=== PATIENT | female | born 1945 ===

== ENCOUNTER 2025-06-26 02:22 | Observation (INO) | payer MEDICARE, OTHER, SELFPAY ==
[2025-06-26] VITALS (29 sets, daily range): BP systolic 93–153; BP diastolic 28–127; PULSE 63–81; RESP 16–22; TEMP 36.4–36.5; O2SAT 92–98
--- NOTE | 2025-06-26 | DI.NM_ITS ---
Exam(s) NM LUNG SCAN VENT PERF AEROS EXAM: NM LUNG SCAN VENT PERF AEROS CLINICAL HISTORY: possible PE vs DVT. TECHNIQUE: Injected Dose: Ventilation: 30 mCi Tc-99m DTPA via inhalation Perfusion: 3.5 mCi Tc-99m MAA via IV COMPARISON: CR,XR XR CHEST 2V PA LATERAL from 06/26/2025 FINDINGS: Chest X-Ray: Clear lungs. Perfusion: Normal. There are no perfusion defects visualized on the examination. Ventilation:Normal. IMPRESSION: 1. Low probability VQ examination. Modified PIOPED II criteria Probability Criteria High Two or more segments of V/Q mismatch Low Normal Perfusion, Non segmental perfusion abnormalities, pleural effusion in at least 1/3 of pleural cavity with no other defect Radiograph/perfusion matched defect in mid to upper lung confined to segment, one to three small segmental perfusion defects (<25% of segment) Perfusion defect smaller than corresponding radiographic lesion. Intermediate All other findings DATA REPOSITORY:
--- NOTE | 2025-06-26 | DI.US_ITS ---
Exam(s) US EXTREMITY VENOUS BI EXAM: US EXTREMITY VENOUS BI CLINICAL HISTORY: dvt. TECHNIQUE: Bilateral lower extremity venous ultrasound performed using grayscale, color-flow, and spectral Doppler analysis. COMPARISON: No exams were available for comparison FINDINGS: The right common femoral, femoral and popliteal veins demonstrate normal compressibility, augmentation, and color Doppler. The posterior tibial veins are patent. The saphenofemoral junction is unremarkable. There is no evidence of a Ko's cyst. The soft tissues are unremarkable. The left common femoral, femoral and popliteal veins demonstrate normal compressibility, augmentation, and color Doppler. The posterior tibial veins are patent. The saphenofemoral junction is unremarkable. There is no evidence of a Ko's cyst. The soft tissues are unremarkable. IMPRESSION: 1. No evidence of a right lower extremity DVT. 2. No evidence of a left lower extremity DVT. DATA REPOSITORY:
--- NOTE | 2025-06-26 02:15 | RT.EKG_ITS ---
APPROVED REPORT Exam: Resting ECG Reason for Exam: SOB Patient Location: E HR:64 bpm ECG Measurements Heart Rate 64 AXIS IN 305 P 79 QRSd 81 QRS -1 QT 415 T 68 QTc 427 Conclusion Sinus rhythm...normal P axis, V-rate 60- 99 Prolonged IN interval...IN >220, V-rate 50- 90 Low voltage, precordial leads...precordial leads <1.0mV Normal [place] No Acute ST changes
--- NOTE | 2025-06-26 02:24 | W.ED.GENAD ---
Discharge Plan Disposition Patient Disposition: Admit to [facility] Condition: Stable Discharge Details Clinical Impression: Pneumonia, Elevated d-dimer, CKD (chronic kidney disease) ED Provider: Jan Hurley and New Rx's Prescriptions: No Action insulin aspart U-100 [Novolog FlexPen U-100 Insulin] .ROUTE insulin degludec [Tresiba FlexTouch U-100] subcut ustekinumab [Stelara] subcut Rx Instructions: once every 3 months rosuvastatin [Crestor] 40 mg tablet 40 mg PO DAILY calcium carbonate-vitamin D3 [Vitamin D3 (with calcium carb)] .ROUTE gabapentin 400 mg capsule 400 mg PO BID esomeprazole magnesium [Nexium] 40 mg capsule,delayed release(DR/EC) 40 mg PO QAM esomeprazole magnesium [Nexium] 20 mg capsule,delayed release(DR/EC) 20 mg PO QPM oseltamivir [Tamiflu] .ROUTE bupropion HCl [Wellbutrin] PO acetaminophen 500 mg tablet 500 mg PO BID lamotrigine .ROUTE modafinil 200 mg tablet 200 mg PO QAM amlodipine 10 mg tablet 10 mg PO QPM HPI General Mode of arrival: EMS. Date/Time Provider Initiated Documentation: 06/26/25 02:24. Limitations to Documentation: no limitations. Information obtained by: patient and RN notes reviewed. HPI Narrative: Patient presents to ED with complaint of shortness of breath. Patient is visiting from out of town. She was on a cruise from [place] to [facility] and became ill with flu. She is now driving back to [place] from [facility]. This evening prior to going to bed had episode of shortness of breath. This resolved and she was able to sleep but woke again early this morning with recurrent shortness of breath. She feels like she is unable to take a deep breath. She denies any chest pain or pressure. Denies any leg pain or leg swelling. Still has a cough. Denies any abdominal pain or back pain. Normal saturations on room air. Related Data Home Medications ?Medication ?Instructions ?Recorded ?Confirmed acetaminophen 500 mg tablet 500 mg PO BID 06/26/25 06/26/25 amlodipine 10 mg tablet 10 mg PO QPM 06/26/25 06/26/25 bupropion HCl PO 06/26/25 calcium carbonate-vitamin D3 .ROUTE 06/26/25 esomeprazole magnesium 20 mg 20 mg PO QPM 06/26/25 06/26/25 capsule,delayed release (Nexium) esomeprazole magnesium 40 mg 40 mg PO QAM 06/26/25 06/26/25 capsule,delayed release (Nexium) gabapentin 400 mg capsule 400 mg PO BID 06/26/25 06/26/25 insulin aspart U-100 .ROUTE 06/26/25 insulin degludec subcut 06/26/25 lamotrigine .ROUTE 06/26/25 modafinil 200 mg tablet 200 mg PO QAM 06/26/25 06/26/25 oseltamivir .ROUTE 06/26/25 rosuvastatin 40 mg tablet (Crestor) 40 mg PO DAILY 06/26/25 06/26/25 ustekinumab subcut 06/26/25 Allergies Allergy/AdvReac Type Severity Reaction Status Date / Time Opioids - Morphine Analogues Allergy Unknown Unknown Verified 06/26/25 02:31 Penicillins Allergy Unknown Unknown Verified 06/26/25 02:31 Exam Narrative Exam Narrative: Const: WDWN elderly female in NAD. VS per triage. HEENT: NC/AT. Normal facial exam. Neck: Supple. Trachea midline. Lungs: Normal respiratory effort. Lungs are clear. Cor: RRR with murmur. Good radial pulses. GI: Soft/ND/NT. Neuro: A+O x 3. Normal speech, mentation, gait. Cranial nerves II - XII grossly intact. No gross motor or sensory deficit. Ext: No C/C/E. Medical Decision Making Medical Records Medical records narrative: Patient presenting to the ED by ambulance with shortness of breath. Reports having shortness of breath prior to going to bed which resolved. Recurrent episode after waking up this morning prompting visit to ED. She is visiting from the area and is from [place]. She reports getting over the flu with residual cough. She has no chest pain or pressure. She has no back pain or abdominal pain. Saturations are normal. Her lungs are clear. Does have a murmur on exam. Doubt ACS or PE normal vitals and saturations. Consider possibility of pneumonia though reports improvement of cough since getting ibuprofen. Possibly related to anxiety patient states earlier this evening felt like a panic attack. Her EKG is sinus rhythm first-degree heart block no acute ST changes. Plan laboratory studies including delta troponin and D-dimer. Imaging of the chest will be obtained based on D-dimer result. Patient has normal WBC. She is anemic with Hgb 10.4. Venous gas with normal pH and pCO2. Chemistries with normal electrolytes but creatinine of 2.4 with GFR of 20. LFTs are fine. Troponin normal. D-dimer is > 1000. Unable to scan due to CKD. CXR ordered. Per my read LLL opacity, radiology feels bilateral hazy opacities. While the d-dimer may be related to pneumonia, cannot completely exclude PE at this time. Her repeat troponin remains normal. Discussed with patient finding of pneumonia but inability to exclude PE. Recommend admission to treat the pneumonia and obtain BLE U/S and V/Q scan later today. Patient agreeable to plan. Patient discussed with hospitalist. Will treat for pneumonia and will anticoagulate pending PE workup. Imaging Data Radiologic Study: Attestation: I personally reviewed and interpreted this imaging study as follows: Imaging: X-Ray My impression: see [facility] Lab Data Lab results reviewed: Yes I reviewed the patient's lab results. Lab results narrative: see [facility] ECG Data Attestation: I personally reviewed and interpreted this ECG (s) as follows: Prior ECG tracings: not available for review Interpretation: see MDM/EKG PFSH All Active Problems (Updated 06/26/25 @ 04:54 by Jan Hurley MD) CKD (chronic kidney disease) (Chronic) Elevated d-dimer (Acute) Pneumonia (Acute) Medical History (Updated 06/26/25 @ 04:54 by Jan Hurley MD) Hypercholesterolemia GERD (gastroesophageal reflux disease) HTN (hypertension) CKD (chronic kidney disease) Diabetes mellitus Social History Smoking/Tobacco Use Status: Never Smoking risk assessment performed?: Yes Alcohol Intake: never Drug use: Never Substance use type: does not use Do you feel safe at home: Yes Do you feel safe in your relationship?: Yes
[2025-06-26 02:48] LABS: BE (Venous) -5 mmol/L (-2-3); HCO3 (Venous) 21 mmol/L (23-28); O2 Sat (Venous) 70 %; TCO2 (Venous) 20 mmol/L (24-29); pCO2 (Venous) 41 mmHg (41-51); pO2 (Venous) 37 mmHg
[2025-06-26 02:49] LABS: Abs Immature Grans 0.01 10^3/uL (0.0-0.06); HCT 31.2 % (36.0-46.0); HGB 10.4 g/dL (11.2-15.7); Immature Grans % 0.2 %; MCH 27.3 pg (27.0-33.0); MCHC 33.3 % (32.0-36.0); MCV 82 fL (80-95); MPV 8.6 fL (8.0-11.0); Platelet Count 179 10^3/uL (130-400); RBC 3.81 10^6/uL (3.93-5.22); RDW 14.1 % (11.7-14.6); RDW-SD 42.1 fL; WBC 5.64 10^3/uL (4.4-10.8)
[2025-06-26 03:08] LABS: ALT 29 U/L (14-59); AST 20 U/L (15-37); Albumin 3.3 g/dL (3.4-5.0); Alkaline Phosphatase 178 U/L (46-116); Anion Gap 9.1 mmol/L (3-11); BUN 37 mg/dL (7-18); Bilirubin, Total 0.3 mg/dL (0.2-1.0); CO2 22.9 mmol/L (21.0-32.0); Calcium 8.3 mg/dL (8.5-10.1); Chloride 105 mmol/L (98-107); Estimated GFR 20.17 (mL/min/1.73m2); Glucose 68 mg/dL (74-106); Magnesium 1.8 mg/dL (1.8-2.4); Potassium 3.9 mmol/L (3.5-5.1); Sodium 137 mmol/L (136-145); Total Protein 7.5 g/dL (6.4-8.2); Troponin I 24 ng/L (<or=51)
[2025-06-26 03:14] LABS: D-Dimer 1138 ng/mlFEU (<500)
--- NOTE | 2025-06-26 03:15 | DI.RAD_ITS ---
Exam(s) XR CHEST 2V PA LATERAL EXAM: XR CHEST 2V PA LATERAL CLINICAL HISTORY: SOB TECHNIQUE: 2D digital imaging was performed of the chest. Two images were obtained. PA and lateral views were obtained. COMPARISON: No exams were available for comparison FINDINGS: MEDIASTINUM: Normal. HEART: Normal. PULMONARY VASCULATURE: Normal. LUNGS: There are lung markings seen in the bases bilaterally, left greater than right. PLEURAL SPACE: No pleural effusion or pneumothorax. BONE:Within normal limits for the patient's age. There is a left shoulder prosthesis. OTHER FINDINGS:Normal. IMPRESSION: 1. Linear infiltrates in the lung bases. This may represent atelectasis. Pneumonia cannot be excluded. Please correlate clinically. 2. The preliminary [facility] report was reviewed. DATA REPOSITORY: RADIATION DOSE DELIVERED:
[2025-06-26] MEDS: Calcium Carbonate *TUMS* 500 MG CHEW PO (04:00)
--- NOTE | 2025-06-26 04:28 | DI.[facility]_ITS ---
PROCEDURE INFORMATION: Exam: XR Chest Exam date and time: 06/26/2025 3:43 AM Age: 79 years old Clinical indication: Shortness of breath; SOB TECHNIQUE: Imaging protocol: Radiologic exam of the chest. Views: 2 views. COMPARISON: No relevant prior studies available. FINDINGS: Lungs: Streaky bibasilar opacities. Pleural spaces: No large pleural effusion seen. Heart/Mediastinum: No cardiomegaly. Bones/joints: Left shoulder prosthesis. IMPRESSION: Streaky bibasilar opacities. Consider atelectasis, pneumonia. Follow-up as clinically warranted. Dictated and Authenticated by: Kasia Drew MD. Orderin Xavi Montoya MD
[2025-06-26 04:29] LABS: Troponin I 24 ng/L (<or=51)
[2025-06-26] MEDS: Azithromycin 250 MG TAB 500 MG PO (05:03)
[2025-06-26] MEDS: cefTRIAXone 1 GM/50 ML BAG IVPB (05:03)
--- NOTE | 2025-06-26 05:13 | W.PM.HP.N ---
Date of service: 06/26/25 Time of Service: 05:13 Assessment and Plan Assessment and plan (1) Dyspnea: Status: Acute Assessment and plan: Exact etiology of the patient's dyspnea is unknown. Could be the late effects of her pneumonia but she does have an elevated dimer. When I evaluated her using Wells criteria her chances of having a DVT are quite low. Her vital signs are stable with sats over 92% on room air. She has had some recent travel though so this certainly a concern for possible DVT versus PE. At this time I am going to start her on Lovenox 1 mg/kg which should be done daily considering her renal function. Creatinine clearance is good but is approximately 23. At this point will not start or at least continue the antibiotics and we will check a procalcitonin ESR and CRP. X-ray findings were vague and no definitive diagnosis of pneumonia was made. IMPRESSION: Streaky bibasilar opacities. Consider atelectasis, pneumonia. Follow-up as clinically warranted. (2) Elevated d-dimer: Status: Acute Assessment and plan: Once again I guess this could be attributed to some degree to her renal function. Considering her creatinine clearance and her assumed chronic kidney disease due to her diabetes my plan will be to get a bilateral lower extremity ultrasound as well as order a VQ scan. Thought being if she does have a DVT but treatment will be essentially the same and she will not need further workup. We have to obtain the supplies for VQ scan which are not kept in the hospital. Could also consider fairly assertive hydration and acetylcysteine although data does not completely support this. (3) CKD (chronic kidney disease): Status: Chronic Assessment and plan: Recheck labs in the AM. Avoid nephrotoxic medications if all possible (4) Diabetes mellitus: Assessment and plan: Will add sliding scale. Unfortunately at this point her med rec list is not available as may need to be done prior to her transfer up to the floor. She was ESR CRP (5) Heart murmur: Status: Acute Assessment and plan: Noted on physical exam. Consider outpatient workup at the discretion of her PCP (6) First degree atrioventricular block: Status: Acute Assessment and plan: Noted no urgent or emergent care is needed. History of Present Illness History of Present Illness Chief Complaint: dyspnea Narrative: Ms Stanley is a 79-year-old female who had recently been on a cruise and unfortunately while she was on the cruise was diagnosed with pneumonia. She has been taking Tamiflu as prescribed. Despite this treatment she continued to have cough and shortness of breath so she presented to the ED for further evaluation and treat while she was in the ED radiographs as well as laboratory and EKGs were performed. Patient did have an elevated D-dimer at over 1138. Unfortunately her creatinine is 2.4 which is a contraindication for CT angiogram. Her chest x-ray was reported as possible pneumonia but she does not have any other diagnostic data that would support this diagnosis. Patient does have diabetes and states that her sugars have been somewhat labile of late. She denies any leg pain. Denies any history of DVT or PEs. EKG does show a first-degree block and it is unknown whether this is chronic. She is otherwise without complaint. Review of Systems All systems reviewed & are unremarkable except as noted in HPI and below PFSH All Active Problems (Updated 06/26/25 @ 05:25 by Jan Dupree MD) First degree atrioventricular block (Acute) Heart murmur (Acute) Dyspnea (Acute) Elevated d-dimer (Acute) CKD (chronic kidney disease) (Chronic) Elevated d-dimer (Acute) Pneumonia (Acute) Medical History (Updated 06/26/25 @ 05:25 by Jan Dupree MD) Hypercholesterolemia GERD (gastroesophageal reflux disease) HTN (hypertension) CKD (chronic kidney disease) Diabetes mellitus Social History Smoking/Tobacco Use Status: Never Smoking risk assessment performed?: Yes Alcohol Intake: never Drug use: Never Substance use type: does not use Do you feel safe at home: Yes Do you feel safe in your relationship?: Yes Meds Allergies and Home Medications Allergies Allergy/AdvReac Type Severity Reaction Status Date / Time Opioids - Morphine Analogues Allergy Unknown Unknown Verified 06/26/25 02:31 Penicillins Allergy Unknown Unknown Verified 06/26/25 02:31 Home Medications ?Medication ?Instructions ?Recorded ?Confirmed ?Type acetaminophen 500 mg tablet 500 mg PO BID 06/26/25 06/26/25 History amlodipine 10 mg tablet 10 mg PO QPM 06/26/25 06/26/25 History bupropion HCl PO 06/26/25 History calcium carbonate-vitamin D3 .ROUTE 06/26/25 History esomeprazole magnesium 20 mg 20 mg PO QPM 06/26/25 06/26/25 History capsule,delayed release (Nexium) esomeprazole magnesium 40 mg 40 mg PO QAM 06/26/25 06/26/25 History capsule,delayed release (Nexium) gabapentin 400 mg capsule 400 mg PO BID 06/26/25 06/26/25 History insulin aspart U-100 .ROUTE 06/26/25 History insulin degludec subcut 06/26/25 History lamotrigine .ROUTE 06/26/25 History modafinil 200 mg tablet 200 mg PO QAM 06/26/25 06/26/25 History oseltamivir .ROUTE 06/26/25 History rosuvastatin 40 mg tablet (Crestor) 40 mg PO DAILY 06/26/25 06/26/25 History ustekinumab subcut 06/26/25 History Exam Narrative Exam Narrative: HEENT-normocephalic atraumatic mucous membranes moist oropharynx is clear Neck-no lymphadenopathy no JVD no thyromegaly Cardiovascular-regular rate and rhythm 3 out of 6 systolic ejection murmur Lungs-clear to auscultation bilaterally with good air exchange no accessory muscle use is noted speaking in complete sentences Abdomen-soft nontender nondistended Extremities-no cyanosis clubbing or edema Neurologic-nonfocal Psych she is alert oriented but sleepy Results Labs 06/26/25 02:40 06/26/25 02:40 Labs: Laboratory Results - last 24 hr 06/26/25 06/26/25 02:40 03:54 WBC 5.64 RBC 3.81 L Hgb 10.4 L Hct 31.2 L MCV 82 MCH 27.3 MCHC 33.3 RDW 14.1 Plt Count 179 MPV 8.6 Immature Gran % 0.2 Neutrophils % 46.1 Lymphocytes % 32.1 Monocytes % 15.6 Eosinophils % 5.1 Basophils % 0.9 Nucleated RBC % 0.0 Absolute Neutrophils 2.60 Absolute Lymphocytes 1.81 Absolute Monocytes 0.88 H Absolute Eosinophils 0.29 Absolute Basophils 0.05 D-Dimer 1138 H VBG pH 7.31 VBG pCO2 41 VBG pO2 37 VBG HCO3 21 L VBG Total CO2 20 L VBG O2 Saturation 70 VBG Base Excess -5 L Sodium 137 Potassium 3.9 Chloride 105 Carbon Dioxide 22.9 Anion Gap 9.1 BUN 37 H Creatinine 2.4 H Est GFR (CKD-EPI 2020) 20.17 Glucose 68 L Calcium 8.3 L Magnesium 1.8 Total Bilirubin 0.3 AST 20 ALT 29 Alkaline Phosphatase 178 H Troponin I 24 24 Total Protein 7.5 Albumin 3.3 L Last Vital Signs Temp 36.4 C L 06/26/25 02:50 Pulse 71 06/26/25 04:20 Resp 16 06/26/25 04:00 BP 128/55 L 06/26/25 04:15 Pulse Ox 92 06/26/25 04:20 Time Spent Time spent with Patient: 40-54 minutes Time was spent: preparing to see the patient(eg.review tests), obtaining and/or reviewing separately otained hiistory, ordering medications,tests, procedures, referring, communicating with other health rn homecare, indepentently interpreting results, counseling the patient and care coordination
--- NOTE | 2025-06-26 05:23 | NUR.NOTE ---
Nursing Note: Pt requested RN to call her daughter Monica and update her. phone number is [phone]. This RN called and spoke with daughter, pt also able to speak with her. Did receive a med list from her that she brought with her but most of the doses are missing. pt is a poor historian and unable to provide. She reports that she uses [facility] in [place], [place].
[2025-06-26 06:08] LABS: COVID-19 PCR Negative (Negative); RSV PCR Negative (Negative)
--- NOTE | 2025-06-26 06:42 | W.PC.ACHO ---
Registration Status: ADM GRACE Primary Language: Preferred Language: ED Information & Data Chief Complaint SOB 06/26/25 02:50 Chief Complaint SOB 06/26/25 02:24 Triage Note BIBA, SOB started about 15 06/26/25 02:24 mins before calling EMS. denies CP. has had similar episodes in the past. Had flu about a week ago. 1st deg AV block noted on EKG by EMS. Diabetic, BGL 66 on arrival. Hx of anxiety Medical / Surgical History (Last Updated 06/26/25 @ 04:47 by Jan Hurley MD) Hypercholesterolemia GERD (gastroesophageal reflux disease) HTN (hypertension) CKD (chronic kidney disease) Diabetes mellitus Most Recent Vital Signs Temperature 36.5 C 06/26/25 05:54 Temperature Source Temporal Artery Scan 06/26/25 05:54 Pulse 74 06/26/25 05:54 Pulse Rhythm Regular 06/26/25 06:01 Pulse Strength Normal 06/26/25 04:00 Respiratory Rate 17 06/26/25 05:54 Respiratory Effort Normal 06/26/25 06:01 Respiratory Depth Normal 06/26/25 06:01 Respiratory Pattern Normal 06/26/25 06:01 Blood Pressure 140/57 L 06/26/25 05:54 Blood Pressure Mean 84 06/26/25 05:54 Blood Pressure Position Supine 06/26/25 04:00 Pulse Oximetry 96 06/26/25 05:54 Oxygen Delivery Method Room Air 06/26/25 06:01 Oxygen Flow Rate 0 06/26/25 06:01 Pain Level 0 06/26/25 02:50 Allergies Opioids - Morphine Analogues Allergy (Unknown, Verified 06/26/25 02:31) Unknown Penicillins Allergy (Unknown, Verified 06/26/25 02:31) Unknown IV IV Catheter Type [Antecubital] Saline Lock IV Catheter Gauge [Antecubital 18 ] Diet Orders Category Date Time Status Regular/Normal [DIET] Nutrition 06/26/25 Breakfast Active Diagnostics 06/26/25 06/26/25 06/26/25 Range/Units 05:35 05:25 03:54 WBC (4.4-10.8) 10^3/uL RBC (3.93-5.22) 10^6/uL Hgb (11.2-15.7) g/dL Hct (36.0-46.0) % MCV (80-95) fL MCH (27.0-33.0) pg MCHC (32.0-36.0) % RDW (11.7-14.6) % Plt Count (130-400) 10^3/uL MPV (8.0-11.0) fL Immature Gran % % Neutrophils % % Lymphocytes % % Monocytes % % Eosinophils % % Basophils % % Nucleated RBC % (0.0-0.3) % Absolute Neutrophils (1.2-6.7) 10^3/uL Absolute Lymphocytes (1.2-3.4) 10^3/uL Absolute Monocytes (0.1-0.8) 10^3/uL Absolute Eosinophils (0.0-0.7) 10^3/uL Absolute Basophils (0.0-0.2) 10^3/uL ESR Pending D-Dimer (<500) ng/mlFEU VBG pH (7.31-7.41) VBG pCO2 (41-51) mmHg VBG pO2 mmHg VBG HCO3 (23-28) mmol/L VBG Total CO2 (24-29) mmol/L VBG O2 Saturation % VBG Base Excess (-2-3) mmol/L Sodium (136-145) mmol/L Potassium (3.5-5.1) mmol/L Chloride (98-107) mmol/L Carbon Dioxide (21.0-32.0) mmol/L Anion Gap (3-11) mmol/L BUN (7-18) mg/dL Creatinine (0.55-1.02) mg/dL Est GFR (CKD-EPI 2020) (mL/min/1.73m2) Glucose (74-106) mg/dL Calcium (8.5-10.1) mg/dL Magnesium (1.8-2.4) mg/dL Total Bilirubin (0.2-1.0) mg/dL AST (15-37) U/L ALT (14-59) U/L Alkaline Phosphatase (46-116) U/L Troponin I 24 (<or=51) ng/L C-Reactive Protein Pending Total Protein (6.4-8.2) g/dL Albumin (3.4-5.0) g/dL Procalcitonin Pending COVID-19 Source Nasopharynx SARS-CoV-2 (PCR) Negative (Negative) Influ A Subtyping (PCR) Pending Influenza Type A (PCR) Positive A (Negative) Influenza Type B (PCR) Negative (Negative) RSV (PCR) Negative (Negative) 06/26/25 Range/Units 02:40 WBC 5.64 (4.4-10.8) 10^3/uL RBC 3.81 L (3.93-5.22) 10^6/uL Hgb 10.4 L (11.2-15.7) g/dL Hct 31.2 L (36.0-46.0) % MCV 82 (80-95) fL MCH 27.3 (27.0-33.0) pg MCHC 33.3 (32.0-36.0) % RDW 14.1 (11.7-14.6) % Plt Count 179 (130-400) 10^3/uL MPV 8.6 (8.0-11.0) fL Immature Gran % 0.2 % Neutrophils % 46.1 % Lymphocytes % 32.1 % Monocytes % 15.6 % Eosinophils % 5.1 % Basophils % 0.9 % Nucleated RBC % 0.0 (0.0-0.3) % Absolute Neutrophils 2.60 (1.2-6.7) 10^3/uL Absolute Lymphocytes 1.81 (1.2-3.4) 10^3/uL Absolute Monocytes 0.88 H (0.1-0.8) 10^3/uL Absolute Eosinophils 0.29 (0.0-0.7) 10^3/uL Absolute Basophils 0.05 (0.0-0.2) 10^3/uL ESR D-Dimer 1138 H (<500) ng/mlFEU VBG pH 7.31 (7.31-7.41) VBG pCO2 41 (41-51) mmHg VBG pO2 37 mmHg VBG HCO3 21 L (23-28) mmol/L VBG Total CO2 20 L (24-29) mmol/L VBG O2 Saturation 70 % VBG Base Excess -5 L (-2-3) mmol/L Sodium 137 (136-145) mmol/L Potassium 3.9 (3.5-5.1) mmol/L Chloride 105 (98-107) mmol/L Carbon Dioxide 22.9 (21.0-32.0) mmol/L Anion Gap 9.1 (3-11) mmol/L BUN 37 H (7-18) mg/dL Creatinine 2.4 H (0.55-1.02) mg/dL Est GFR (CKD-EPI 2020) 20.17 (mL/min/1.73m2) Glucose 68 L (74-106) mg/dL Calcium 8.3 L (8.5-10.1) mg/dL Magnesium 1.8 (1.8-2.4) mg/dL Total Bilirubin 0.3 (0.2-1.0) mg/dL AST 20 (15-37) U/L ALT 29 (14-59) U/L Alkaline Phosphatase 178 H (46-116) U/L Troponin I 24 (<or=51) ng/L C-Reactive Protein Total Protein 7.5 (6.4-8.2) g/dL Albumin 3.3 L (3.4-5.0) g/dL Procalcitonin COVID-19 Source SARS-CoV-2 (PCR) (Negative) Influ A Subtyping (PCR) Influenza Type A (PCR) (Negative) Influenza Type B (PCR) (Negative) RSV (PCR) (Negative) [id number] Documentation Fingerstick Glucose Start: 06/26/25 02:48 Freq: Status: Complete Protocol: Activity Type Activity Date Activity User E-sign Co-sign Detail Recorded Client Recorded Date Recorded By Document 06/26/25 02:45 BKG DAEMON(3) [id number] 06/26/25 02:48 BKG DAEMON(4) Intake and Output - 24 Hour Total 06/26/25 02:17 thru 06/26/25 06:26 Weight 72.5 kg Other: Urine Color Yellow Urine Appearance Clear Urine Odor Normal Comment pt voids to toilet. Falls Risk Assessment History of Falls No History 06/26/25 06:01 Contributing Factors Impairments 06/26/25 06:01 Ambulatory Aids Uses ambulatory device 06/26/25 06:01 Tubes/Lines None 06/26/25 02:50 Gait Evaluation No gait disturbance 06/26/25 02:50 Cognition No cognitive impairment 06/26/25 02:50 Fall Total Score 18 06/26/25 06:01 Level of Risk Standard/Low Risk 06/26/25 06:01 Problems (Last Updated 06/26/25 @ 04:47 by Jan Hurley MD) First degree atrioventricular block (Acute) Heart murmur (Acute) Dyspnea (Acute) Elevated d-dimer (Acute) CKD (chronic kidney disease) (Chronic) Elevated d-dimer (Acute) Pneumonia (Acute) Notes 06/26/25 05:23 Nursing Notes by Hanh Peng Nursing Note: Pt requested RN to call her daughter Monica and update her. phone number is [phone]. This RN called and spoke with daughter, pt also able to speak with her. Did receive a med list from her that she brought with her but most of the doses are missing. pt is a poor historian and unable to provide. She reports that [facility] [place], [place]. Initialized on 06/26/25 05:23 - END OF NOTE v v v v v v v v v Sending and/or Receiving Nurses: Please use comment section below to note any information pertinent to the patient hand-off not included above. Information / Comments: Report received from: Hanh [email or web address]
[2025-06-26 07:32] LABS: ESR 27 mm/hr (0-30)
[2025-06-26 07:46] LABS: C-Reactive Protein 4.57 mg/dL (<or=0.5)
[2025-06-26] MEDS: MODAFINIL 200 MG PO (07:51)
[2025-06-26] MEDS: Gabapentin 400 MG CAP PO (07:52)
[2025-06-26] MEDS: Normal Saline Flush 10 ML SYR IVP (07:52)
[2025-06-26] MEDS: Acetaminophen 500 MG TAB PO (07:52)
[2025-06-26 07:59] LABS: Procalcitonin 0.21 ng/mL
--- NOTE | 2025-06-26 08:38 | PDOC.CMIN ---
Date of service: 06/26/25 Time of Service: 08:38 Care Management Initial Assmt Initial Assessment Reason for Hospitalization: dyspnea Functional Status/Living Situation Patient Presentation: Nikole presented to the ED early this morning with c/o shortness of breath. Nikole was on a cruise from [place] to [facility] and became ill with the flu. She was driving back to [place] from [facility] with her daughter and 2 grandsons. They stopped [place] for the night, and Nikole was feeling SOB and came to the ER. Nikole stated that all 4 of the travellers got sick with the flu, as well as many other passengers. Nikole was pleasant with Town of Residence: [place], [place] Significant Other/Family: Local (daughter, Monica and her family) Advance Directives Advance Directives: Do you have an Advance Directive: Y Today, 09:40 AD On File at [facility]: N Today, 04:15 Date Asked 06/26/25 Today, 04:15 AD Date Reviewed COLST On File at [facility] COLST Date Scanned Code Status Resuscitation Status Full Code Insurance Coverage/Financial Issues Insurance: Medicare Part A & B Un[employer]? Care Team Visit Care Team Role Provider Type Chang Hernandes MD MD [facility] STAFF PHYSICIAN Unknown Unknown Primary Care Provider STAFF PHYSICIAN Jan Hurley MD Emergency Provider [facility] STAFF PHYSICIAN Jan Dupree MD Admit Provider [facility] STAFF PHYSICIAN Attending Provider Discharge Potential Discharge Needs: PCP F/U Appt Anticipated Barriers to Discharge: None Identified Patient/Family Education Needs: Review discharge instructions, discuss Ask Me Three Transportation: Private vehicle Plan: Anticipate that Nikole will discharge home with no new services. She will f/u with her PCP in [place] and continue per her plan of care. Nikole will transport in a private vehicle. CM will continue to follow. Social Determinants of Health Screening Social Determinants of health last assessed in clinic: 06/26/25 Will the Patient Participate in the Screening?: Yes Do you worry about having a steady place to live?: yes What is your living situation today?: I have housing today, but am worried about losing it Problems where you live: no known problems In the past 12 months, have you had to go without electric, gas, oil or water in your home?: no Has lack of transportation kept you from medical appointments or from doing things needed for daily living?: no Has anyone in your life made you feel unsafe or unsupported?: no How hard is it for you to pay for the very basics like food, housing, medical care, and heating? Would you say it is:: Not hard at all Do you want help finding or keeping work or a job?: I do not need or want help If for any reason you need help with day-to-day activities such as bathing, preparing meals, shopping, managing finances, etc., do you get the help you need?: I don?t need any help How often do you feel lonely or isolated from those around you?: Never Do you speak a language other than Estonian at home?: No Does the patient want assistance with any of the above?: No Health Related Social Needs Health related social needs: housing instability, housed, with risk of homelessness (Z59.811) PFSH All Active Problems (Updated 06/26/25 @ 16:03 by Chang Hernandes MD) First degree atrioventricular block (Acute) Heart murmur (Acute) Dyspnea (Acute) Elevated d-dimer (Acute) CKD (chronic kidney disease) (Chronic) Elevated d-dimer (Acute) Pneumonia (Acute) Medical History (Updated 06/26/25 @ 16:03 by Chang Hernandes MD) Hypercholesterolemia GERD (gastroesophageal reflux disease) HTN (hypertension) CKD (chronic kidney disease) Diabetes mellitus Social History Smoking/Tobacco Use Status: Never Smoking risk assessment performed?: Yes Alcohol Intake: never Drug use: Never Substance use type: does not use Housing: house Do you feel safe at home: Yes Do you feel safe in your relationship?: Yes
[2025-06-26] MEDS: Insulin Aspart 300 UNITS/3 ML PEN SC ×2 (09:21→17:29)
--- NOTE | 2025-06-26 09:46 | NUR.NOTE ---
Accessed chart for face sheet to fax to [facility]. Fax completed. Nursing Note:
[2025-06-26] MEDS: Albuterol 2.5 MG/3 ML INH SOLN VIAL UPD (12:51)
--- NOTE | 2025-06-26 16:38 | W.PM.DS.N ---
Date of service: 06/26/25 Time of Service: 16:38 DS: Diagnosis Discharge Diagnosis (1) Dyspnea: Status: Acute (2) Elevated d-dimer: Status: Acute (3) CKD (chronic kidney disease): Status: Chronic (4) Diabetes mellitus: (5) Heart murmur: Status: Acute (6) First degree atrioventricular block: Status: Acute Discharge Plan Disposition Patient Disposition: Home Condition: Good Discharge Details Reason For Visit: Dyspnea Admit Date/Time: 06/26/25 05:07 Admit Provider: Jan Dupree Attending Provider: Jan Dupree [facility] Hospital Course: Patient initially presented to the hospital with shortness of breath in the setting of recent Flu A diagnosis. CXR showed mild concern for infiltrate but patient was without leukocytosis, fever, and procal was negative. Given her CKD she was unable to get CTA PE, but was able to get V/Q scan which showed low suspecison for PE. Given that patient did not have any acute findings and her vitals remained stable it was determined that she was stable for discharge home. Home Meds and New Rx's Prescriptions: Continued insulin aspart U-100 [Novolog FlexPen U-100 Insulin] 70 unit subcut DAILY Rx Instructions: INJECT UP TO 70 UNITS UNDER THE SKIN TOTAL DAILY insulin degludec [Tresiba FlexTouch U-100] 70 unit subcut QAM Rx Instructions: INJECT 70 UNITS IN THE MORNING ustekinumab [Stelara] subcut Rx Instructions: once every 3 months rosuvastatin [Crestor] 40 mg tablet 40 mg PO DAILY calcium carbonate-vitamin D3 [Vitamin D3 (with calcium carb)] .ROUTE gabapentin 400 mg capsule 400 mg PO BID esomeprazole magnesium [Nexium] 40 mg capsule,delayed release(DR/EC) 40 mg PO QAM esomeprazole magnesium [Nexium] 20 mg capsule,delayed release(DR/EC) 20 mg PO QPM oseltamivir [Tamiflu] .ROUTE acetaminophen 500 mg tablet 500 mg PO BID modafinil 200 mg tablet 200 mg PO QAM amlodipine 10 mg tablet 10 mg PO QPM bupropion HCl 100 mg tablet sustained-release 12 hr 100 mg PO DAILY lamotrigine 300 mg tablet extended release 24hr 300 mg PO DAILY Discharge Instructions Stand Alone Forms: Nursing Discharge Form Referrals: Jazmine Zimmons [Other, Family Practice] Referral Note: Please call your PCP office to set up a follow up appointment. Activity:: Activity as Tolerated Equipment/Supplies:: No Equipment Needed Diet:: As Tolerated Discharge Orders Discharge Orders: Discharge Order (Routine); Ordered 06/26/25 Ordered By: Chang Hernandes DS: Summary Time Spent with Patient providing and/or coordinating discharge services: Greater than 30 minutes Status at Discharge Functional status at discharge: independent ambulation Overall status at discharge: patient is back to baseline Mental Status: mental status grossly normal Speech and Movement: speech and movement normal Mood: congruent mood Affect: normal affect Quality:SDOH Health Related Social Needs: Health related social needs risk of homeless Exam Narrative Exam Narrative: fatigued but otherwise well appearing older female laying in bed in no acute distress, AOX4, heart RRR, lungs with minimal end expiratory wheezing in bilateral bases, abdomen soft, non-tedner, non-distended Psych Mental Status: mental status grossly normal Speech and Movement: speech and movement normal Mood: congruent mood Affect: normal affect DS: Data Vitals/I&O Vitals and I&O: Vital Signs Temperature 97.7 F 06/26/25 07:23 Temperature Source Temporal Artery Scan 06/26/25 07:23 Pulse 73 06/26/25 13:00 Pulse Rhythm Regular 06/26/25 06:01 Pulse Strength Normal 06/26/25 04:00 Respiratory Rate 17 06/26/25 07:23 Respiratory Effort Normal 06/26/25 06:01 Respiratory Depth Normal 06/26/25 06:01 Respiratory Pattern Normal 06/26/25 06:01 Blood Pressure 108/63 06/26/25 07:23 Blood Pressure Mean 78 06/26/25 07:23 Blood Pressure Position Supine 06/26/25 04:00 Pulse Oximetry 94 06/26/25 07:23 Oxygen Delivery Method Room Air 06/26/25 07:23 Oxygen Flow Rate 0 06/26/25 07:23 Pain Level 0 06/26/25 07:23 Intake & Output 06/25/25 06/26/25 06/26/25 17:59 05:59 17:59 Intake Total 220 / 220 Balance 220 / 220 Weight 159 lb 13.362 oz Intake: Oral 220 / 220 Other: Urine Color Yellow Urine Appearance Clear Urine Odor Normal Comment Pt missed the hat. Data Completed and Pending Labs on day of discharge: Labs from last 24 hours 06/26/25 06/26/25 06/26/25 07:15 05:25 03:54 WBC RBC Hgb Hct MCV MCH MCHC RDW Plt Count MPV Immature Gran % Neutrophils % Lymphocytes % Monocytes % Eosinophils % Basophils % Nucleated RBC % Absolute Neutrophils Absolute Lymphocytes Absolute Monocytes Absolute Eosinophils Absolute Basophils ESR 27 D-Dimer VBG pH VBG pCO2 VBG pO2 VBG HCO3 VBG Total CO2 VBG O2 Saturation VBG Base Excess Sodium Potassium Chloride Carbon Dioxide Anion Gap BUN Creatinine Est GFR (CKD-EPI 2020) Glucose Calcium Magnesium Total Bilirubin AST ALT Alkaline Phosphatase Troponin I 24 C-Reactive Protein 4.57 H Total Protein Albumin Procalcitonin 0.21 COVID-19 Source Nasopharynx SARS-CoV-2 (PCR) Negative Influ A Subtyping (PCR) Pending Influenza Type A (PCR) Positive A Influenza Type B (PCR) Negative RSV (PCR) Negative 06/26/25 02:40 WBC 5.64 RBC 3.81 L Hgb 10.4 L Hct 31.2 L MCV 82 MCH 27.3 MCHC 33.3 RDW 14.1 Plt Count 179 MPV 8.6 Immature Gran % 0.2 Neutrophils % 46.1 Lymphocytes % 32.1 Monocytes % 15.6 Eosinophils % 5.1 Basophils % 0.9 Nucleated RBC % 0.0 Absolute Neutrophils 2.60 Absolute Lymphocytes 1.81 Absolute Monocytes 0.88 H Absolute Eosinophils 0.29 Absolute Basophils 0.05 ESR D-Dimer 1138 H VBG pH 7.31 VBG pCO2 41 VBG pO2 37 VBG HCO3 21 L VBG Total CO2 20 L VBG O2 Saturation 70 VBG Base Excess -5 L Sodium 137 Potassium 3.9 Chloride 105 Carbon Dioxide 22.9 Anion Gap 9.1 BUN 37 H Creatinine 2.4 H Est GFR (CKD-EPI 2020) 20.17 Glucose 68 L Calcium 8.3 L Magnesium 1.8 Total Bilirubin 0.3 AST 20 ALT 29 Alkaline Phosphatase 178 H Troponin I 24 C-Reactive Protein Total Protein 7.5 Albumin 3.3 L Procalcitonin COVID-19 Source SARS-CoV-2 (PCR) Influ A Subtyping (PCR) Influenza Type A (PCR) Influenza Type B (PCR) RSV (PCR) PFSH All Active Problems (Updated 06/26/25 @ 16:03 by Chang Hernandes MD) First degree atrioventricular block (Acute) Heart murmur (Acute) Dyspnea (Acute) Elevated d-dimer (Acute) CKD (chronic kidney disease) (Chronic) Elevated d-dimer (Acute) Pneumonia (Acute) Medical History (Updated 06/26/25 @ 16:03 by Chang Hernandes MD) Hypercholesterolemia GERD (gastroesophageal reflux disease) HTN (hypertension) CKD (chronic kidney disease) Diabetes mellitus Social History Smoking/Tobacco Use Status: Never Smoking risk assessment performed?: Yes Alcohol Intake: never Drug use: Never Substance use type: does not use Housing: house Do you feel safe at home: Yes Do you feel safe in your relationship?: Yes Time Spent with Patient Time Spent with Patient: <45 minutes Time was spent: preparing to see the patient(eg.review tests), obtaining and/or reviewing separately otained hiistory, ordering medications,tests, procedures, referring, communicating with other health urgent care physician, indepentently interpreting results, counseling the patient and care coordination
--- NOTE | 2025-06-26 17:16 | CMPROGNOTE_ITS ---
Date of service: 06/26/25 Time of Service: 17:16 Care Management Progress Note Progress Note Text Progress Note Text: Nikole presented to the ED early this morning with c/o shortness of breath. Nikole was on a cruise from [place] to [facility] and became ill with the flu. She was driving back to [place] from [facility] with her daughter and 2 grandsons. They stopped in [facility] for the night, and Nikole was feeling SOB and came to the ER. Nikole stated that all 4 of the travellers got sick with the flu, as well as many of the other passengers. Nikole's work up was negative and she is being discharged tonight. Her daughter, Monica and her 2 young boys are here to pick Nikole up. They are planning to spend the night in [facility], and head to [place] in the morning. Discharge Potential Discharge Needs: PCP F/U Appt (Nikole has a PCP, Lori Gray DO, in [place] that she will call tomorrow to set up a hospital f/u appointment) Anticipated Barriers to Discharge: None Identified Patient/Family Education Needs: Review discharge instructions, discuss Ask Me Three Transportation: Private vehicle Plan: Nikole is being discharged this evening with no new services. She has instructions to follow up with her PCP. Nikole will discharge with her daughter and continue per her plan of care. Social Determinants of Health Screening Social Determinants of health last assessed in clinic: 06/26/25 Will the Patient Participate in the Screening?: Yes Do you worry about having a steady place to live?: yes What is your living situation today?: I have housing today, but am worried about losing it Problems where you live: no known problems In the past 12 months, have you had to go without electric, gas, oil or water in your home?: no 1. Within the past 12 months, we worried whether our food would run out before we got money to buy more.: Don't know/refused 2. Within the past 12 months, the food we bought just didn't last and we didn't have money to get more.: Don't know/refused Has lack of transportation kept you from medical appointments or from doing things needed for daily living?: no Has anyone in your life made you feel unsafe or unsupported?: no How hard is it for you to pay for the very basics like food, housing, medical care, and heating? Would you say it is:: Not hard at all Do you want help finding or keeping work or a job?: I do not need or want help If for any reason you need help with day-to-day activities such as bathing, preparing meals, shopping, managing finances, etc., do you get the help you need?: I don?t need any help How often do you feel lonely or isolated from those around you?: Never Do you speak a language other than Luxembourger at home?: No Does the patient want assistance with any of the above?: No Health Related Social Needs Health related social needs: housing instability, housed, with risk of homelessness (Z59.811)
== END 2025-06-26 17:59 | disposition home or self-care (01) ==
LOC: ER 05:34 → MS 05:40
PROVIDERS: Admitting Provider Hospitalist; Emergency Provider Emergency Medicine; Responsible Provider Family Medicine; Visit Provider Hospitalist
DX: R06.02 Shortness of breath (principal); I44.0 Atrioventricular block, first degree; N18.9 Chronic kidney disease, unspecified; R79.1 Abnormal coagulation profile; D64.9 Anemia, unspecified; E78.00 Pure hypercholesterolemia, unspecified; K21.9 Gastro-esophageal reflux disease without esophagitis; I12.9 Hypertensive chronic kidney disease with stage 1 through stage 4 chronic kidney disease, or unspecified chronic kidney disease; E11.22 Type 2 diabetes mellitus with diabetic chronic kidney disease; R01.1 Cardiac murmur, unspecified; Z79.899 Other long term (current) drug therapy; Z79.4 Long term (current) use of insulin; Z79.811 Long term (current) use of aromatase inhibitors
CPT/HCPCS: 00123; 36415; 36416; 80053; 82805; 82962; 84145; 85652; 87637; 93005; 96365; 99285; J1650; 71046; 78582; 83735; 84484; 85025; 85379; 86140; 93010; 93970; 94640; 99236; G0378; J0696; J1815; J7613